=== PATIENT | female | born 1990 | race Caucasian/White ===

== ENCOUNTER 2017-08-27 02:08 | Emergency (ER) | payer MEDICAID, OTHER ==
[2017-08-27] MEDS: ONDANSETRON 4 MG INJ IM (04:22)
[2017-08-27] MEDS: SUMATRIPTAN 50 MG TAB PO (04:27)
== END 2017-08-27 05:34 | disposition home or self-care (01) ==
LOC: FTE 02:08
DX: R51 Headache (principal); R11.2 Nausea with vomiting, unspecified
CPT/HCPCS: 96372; 99284-25